=== PATIENT | female | born 1985 | race Caucasian/White ===

== ENCOUNTER 2016-06-05 23:31 | Emergency (ER) | payer BC ==
[~2016-06-05] VITALS: Ht 167.6 cm; Wt 124.0 kg
[2016-06-05 23:38] VITALS: Ht 167.6 cm; Wt 124.0 kg
[2016-06-06] MEDS ORDERED: SODI126M NASAL (01:23)
[2016-06-06] MEDS ORDERED: IBUP-1542 PO (01:23)
[2016-06-06] MEDS ORDERED: BENZ100C70 PO (01:23)
[2016-06-06] MEDS ORDERED: LORA-186 PO (01:23)
--- NOTE | 2016-06-06 01:37 | ERD ---
ER Documentation Chief Complaint Date/Time DATE: 06/06/16 TIME: 01:36 Chief Complaint sore throat and cold symptoms x3 days HPI This is a 22-year-old female presenting emergency department complaining of sore throat, fever, congestion the past 3 days. Patient denies any current fever. Patient states that she has tried DayQuil and NyQuil without any relief. She denies any chest pain shortness of breath ROS All systems reviewed and are negative except as per history of present illness. Medications Home Meds Active Scripts Benzonatate* (Tessalon Perle*) 100 Mg Capsule, 100 MG PO Q8H Y for COUGH, #14 CAP Prov:ANNEMARIE DAS PA-C 06/06/16 Sodium Chloride (Saline Nasal Mist) 126 Ml Mist, 1 SPRAY NASAL BID, #1 BOTTLE Prov:ANNEMARIE DAS PA-C 06/06/16 Ibuprofen* (Motrin*) 600 Mg Tab, 600 MG PO Q6H Y for PAIN AND OR ELEVATED TEMP, #30 TAB Prov:ANNEMARIE DAS PA-C 06/06/16 Loratadine* (Claritin*) 10 Mg Tablet, 10 MG PO DAILY, #30 TAB Prov:ANNEMARIE DAS PA-C 06/06/16 PMhx/Soc Medical and Surgical Hx: pt denies Medical Hx History of Surgery: Yes (Appendectomy, ) Anesthesia Reaction: No Hx Alcohol Use: No Hx Substance Use: No Hx Tobacco Use: No Smoking Status: Never smoker Physical Exam Vitals Vital Signs Date Time Temp Pulse Resp B/P Pulse Ox O2 Delivery O2 Flow Rate FiO2 06/05/16 23:38 98.1 91 20 148/89 99 Physical Exam GENERAL: well-developed/well-nourished, in no apparent distress, non-toxic appearing HEAD: NC/AT, no swelling noted in frontal or maxillary areas EARS: bilateral tympanic membrane is intact without erythema or effusion NARES: Ingested THROAT: oropharynx erythematous without exudates, no tonsil enlargement, post nasal drip EYES: Conjunctiva normal NECK: Supple, no lymphadenopathy PULM: CTA bilaterally, no rales, rhonchi, or wheezing heard CV: Normal S1S2, RRR, good capillary refill GI: Soft, non-distended, normal bowel sounds, non-tender BACK: No midline tenderness, no masses EXT No clubbing, cyanosis, or edema NEURO: Alert and Orientated SKIN: Intact, normal turgor PSYCH: Normal mood and mentation Procedures/MDM MDM: 22-year-old female presents to the ER with upper respiratory infection, which is most likely viral. My clinical suspicion is low suspicion for pneumonia , strep pharyngitis, or pulmonary emergencies due to physical examination. Patient's lungs were clear on examination. DISPOSITION: hemodynamically stable for discharge. Prescription for Claritin, ibuprofen Tessalon Perles was given to patient, discussed to return to the ED if not improving as expected or follow-up with a primary care physician. Patient understood and agreed with this plan. Departure Diagnosis: Primary Impression: URI (upper respiratory infection) Condition: Stable Patient Instructions: Preventing Common Respiratory Infections, Uri, Viral, No Abx (Adult) Additional Instructions: FOLLOW UP WITH YOUR PRIMARY CARE PHYSICIAN TOMORROW.Return to this facility if you are not improving as expected. Take all medicines as directed. ANNEMARIE DAS PA-C Jun 06, 2016 01:37
== END 2016-06-06 02:26 | disposition home or self-care (01) ==
LOC: FTE 23:31
DX: J06.9 Acute upper respiratory infection, unspecified (principal)
CPT/HCPCS: 99283

== ENCOUNTER 2016-09-12 22:58 | Emergency (ER) | payer SELFPAY ==
[~2016-09-12] VITALS: Ht 167.6 cm; Wt 122.0 kg
[~2016-09-12 22:58] MED LIST: BENZ100C70 PO; IBUP-1542 PO; LORA-186 PO; SODI126M NASAL
[2016-09-12 23:00] VITALS: Ht 167.6 cm; Wt 122.0 kg
== END 2016-09-12 23:00 | disposition left against medical advice (07) ==
LOC: E/R 22:58
DX: Z53.21 Procedure and treatment not carried out due to patient leaving prior to being seen by health care provider (principal)